=== PATIENT | female | born 1985 | race Hispanic/Latino ===

== ENCOUNTER 2025-01-20 09:50 | Emergency (ER) | payer BC, OTHER ==
[~2025-01-20] VITALS: Ht 167.6 cm; Wt 152.0 kg
[2025-01-20 09:51] VITALS: BP 121/71; PULSE 88; TEMP 98.5
--- NOTE | 2025-01-20 10:11 | ERN ---
ED Note History of Present Illness Stated Complaint: FALL, BILATERAL ANKLE PAIN Chief Complaint: Mechanical Fall Time Seen by MD: 10:04 Dictation: PATIENT IS A 39-YEAR-OLD FEMALE HERE WITH COMPLAINTS OF BILATERAL ANKLE PAIN SWELLING AND LEFT MEDIAL DISTAL FEMUR THIGH SWELLING STATUS POST FALL. SHE STATES SHE WAS IN HER YD WHEN SHE STEPPED INTO A HOLE SHE WAS UNABLE TO WEIGHT BEAR ON HER BILATERAL ANKLES AND ALSO HAS SWELLING TO HER MEDIAL ASPECT OF THE DISTAL LEFT THIGH. NO SHORTENING OR ROTATION NOTED DISTAL NEUROVASCULAR CMS INTACT SHE HAS NOT TAKEN ANYTHING PRIOR TO ARRIVAL FOR PAIN Allergies: Coded Allergies: No Known Allergies (Unverified Allergy, Unknown, 01/20/25) Past Medical History Past Medical History: Hypertension Surgical History: None History: Not Applicable LMP: Dec 23, 2024 RN Note Reviewed/Agreed w/PFSH: Yes Review of System Dictation CONSTITUTIONAL: NEGATIVE EXCEPT FOR HPI HEAD/FACE: NEGATIVE EXCEPT FOR HPI EENT: NEGATIVE EXCEPT FOR HPI RESPIRATORY: NEGATIVE EXCEPT FOR HPI GASTROINTESTINAL/ABDOMINAL: NEGATIVE EXCEPT FOR HPI GENITOURINARY: NEGATIVE EXCEPT FOR HPI MUSCULOSKELETAL: NEGATIVE EXCEPT FOR HPI MEDIAL ASPECT OF DISTAL LEFT THIGH, BILATERAL ANKLE PAIN INTEGUMENTARY: NEGATIVE EXCEPT FOR HPI NEUROLOGICAL/PSYCH: NEGATIVE EXCEPT FOR HPI HEMATOLOGIC/LYMPHATIC: NEGATIVE EXCEPT FOR HPI ALL SYSTEMS NEGATIVE, EXCEPT NOTED ABOVE. 13 POINT REVIEW OF SYSTEMS ASSESSED AND ALL NEGATIVE EXCEPT FOR ABOVE. Initial Vital Sign VS Vital Signs Date Time Temp Pulse Resp B/P (MAP) Pulse Ox O2 Delivery O2 Flow Rate FiO2 01/20/25 09:51 98.4 88 121/71 97 Room Air 0 Physical Exam Dictation VITAL SIGNS REVIEWED GENERAL APPEARANCE: ALERT, ORIENTED X 3, MODERATE ACUTE DISTRESS, WELL DEVELOPED, NOURISHED. OBESE HEAD AND FACE: NON-TRAUMATIC. EYES: PERRL, PINK CONJUNCTIVAS, EYELID NO TRAUMA, ANTERIOR CHAMBER WITH ARCUS SENILIS. EARS: PINNAS INTACT AND NO SIGNS OF TRAUMA OR ERYTHEMA EAR CANALS CLEAR AND NO DISCHARGE TM NO ERYTHEMA NOSE: NO DISCHARGE, NO BLEEDING. OROPHARYNX: MOUTH NORMAL, TONGUE PINK, PHARYNX CLEAR,NO ERYTHEMA, TONSILS NO EXUDATES, NO ABSCESSES NOTED, MUCOUS MEMBRANE MOIST NECK: SUPPLE, NON-TENDER, NO THYROMEGALY, NO MASSES, NO JVD, NO BRUITS BREAST:DEFERRED CHEST:NO TENDERNESS, NO CREPITUS, NO PARADOXICAL MOVEMENT, NO RETRACTIONS LUNGS:CLEAR, WELL-VENTILATED, SYMMETRIC, NO RALES, NO WHEEZING, NO RHONCHI, NO STRIDOR, GOOD BREATH SOUNDS BILATERALLY HEART: REGULAR RATE, REGULAR RHYTHM, NO MURMUR, NO GALLOPS VASCULAR: NO PERIPHERAL EDEMA, ABDOMEN: SOFT, POSITIVE BOWEL SOUNDS, NONDISTENDED, NO GUARDING, NONTENDER, NO REBOUND, NO MASSES NO HEPATOMEGALY, NO SPLENOMEGALY, NO WILLIAM'S SIGN, NO HERNIAS. RECTAL: DEFERRED GENITAL: DEFERRED NEUROLOGICAL: NORMAL SPEECH, MOTOR FUNCTION INTACT, SENSORY FUNCTION INTACT MUSCULOSKELETAL: NECK NONTENDER, FULL RANGE OF MOTION, BACK NONTENDER, FULL RANGE OF MOTION, EXTREMITIES: BILATERAL LATERAL MALLEOLAR TENDERNESS SWELLING. SOFT TISSUE SWELLING NOTED TO MEDIAL ASPECT OF DISTAL LEFT THIGH SKIN: COLOR PINK, DRY, NO TURGOR, NO RASH, NO LACERATIONS, NO ABRASIONS, NO CONTUSIONS. LYMPHATIC: DEFERRED Results (Laboratory/Radiology) Laboratory/Radiology LEFT FEMUR X-RAY NEGATIVE SOFT TISSUE SWELLING ONLY LEFT ANKLE DEMONSTRATES DISTAL FIBULAR FRACTURE RIGHT ANKLE DEMONSTRATES NO FRACTURE Labs Reviewed?: Yes ED Course ED Course Orders Procedure Category Date Status Time Hydrocodone/Apap PHA 01/20/25 Complete 5/325 ([place] 5/325mg) 10:30 Ketorolac 60mg/2ml PHA 01/20/25 Complete (Toradol 60mg/2ml) 10:30 Ankle Comp 3vws Lt RAD 01/20/25 Taken 10:07 Ankle Comp 3vws Rt RAD 01/20/25 Taken 10:07 Femur 2 Vw Left RAD 01/20/25 Taken 10:07 Apply Ice Pack To: CPOE 01/20/25 Transmitted (Er) 10:07 Crutches W/Training CPOE 01/20/25 Transmitted (Er) 11:39 Posterior Ankle Splint CHRISTY.ER 01/20/25 Transmitted 11:39 Apply Moncho Wrap (Er) CPOE 01/20/25 Transmitted 11:39 Current Medications Medications (Trade) Dose Ordered Sig/Sandy Route PRN Reason Start Time Stop Time Status Last Admin Dose Admin Acetaminophen/ Hydrocodone Bitart (NORco 5/325MG) 1 tab ONCE ONCE PO 01/20/25 10:30 01/20/25 10:31 DC 01/20/25 10:32 Ketorolac Tromethamine (toRADol 60MG/ 2ML) 60 mg ONCE ONCE IM 01/20/25 10:30 01/20/25 10:31 DC 01/20/25 10:31 Vital Signs Date Time Temp Pulse Resp B/P (MAP) Pulse Ox O2 Delivery O2 Flow Rate FiO2 01/20/25 09:51 98.4 88 121/71 97 Room Air 0 1140/MONCHO WRAP TO RIGHT ANKLE NEUROVASCULAR CMS INTACT. LEFT POSTERIOR ANKLE SPLINT PLACED BY TECH DISTAL NEUROVASCULAR CMS INTACT POST PLACEMENT Medical Decision Making MDM MEDICAL DISCHARGE MAKING BASED ON PAIN MANAGEMENT AND X-RAYS OF LEFT FEMUR AND BILATERAL ANKLES LEFT FEMUR X-RAY NEGATIVE EXCEPT FOR SOFT TISSUE SWELLING RIGHT ANKLE X-RAY NEGATIVE EXCEPT FOR SOFT TISSUE SWELLING NONDISPLACED LEFT DISTAL FIBULAR FRACTURE SPLINT INTACT NEUROVASCULAR CMS INTACT TO BOTH EXTREMITIES PATIENT INSTRUCTED SHE MAY TOUCH DOWN WEIGHT BEAR ON RIGHT ANKLE. DX & DISP Disposition: Discharge Departure Impression: Primary Impression: Closed fracture of left distal fibula Additional Impressions: Right ankle sprain, Contusion of left thigh, initial encounter, Fall Condition: Stable Scripts Ibuprofen (Ibuprofen 800 mg Tab) 800 Mg Tab 800 MG PO Q8H PRN for fever or pain, #30 TAB 0 Refills Prov: CRYSTAL VALENTINO NP 01/20/25 Additional Instructions: FOLLOW-UP WITH PRIMARY CARE PROVIDER IN 1 TO 2 DAYS. TAKE MEDICATIONS DIRECTED HERE IN THE EMERGENCY ROOM. OKAY TO CONTINUE HOME MEDICATIONS UNLESS OTHERWISE DISCUSSED DURING YOUR VISIT IN THE EMERGENCY ROOM TODAY. RETURN TO YOUR NEAREST EMERGENCY ROOM IF SYMPTOMS WORSEN OR IF THERE IS NO IMPROVEMENT. CALL 911 IF YOU NEED IMMEDIATE ASSISTANCE. TAKE TYLENOL OR MOTRIN [id number] NEEDED AND IF NO CONTRAINDICATIONS ARE PRESENT. INCREASE ORAL HYDRATION. A WOUND CULTURE OR URINE CULTURE WAS ORDERED HERE IN THE EMERGENCY ROOM DEPARTMENT PLEASE FOLLOW-UP WITH PRIMARY CARE PROVIDER AND ADVISE THEM TO GET REPEAT PORTS FROM OUR FACILITY. IF YOU HAD ANY MONCHO WRAP/SPLINTS THAT WERE APPLIED HERE, PLEASE DO NOT REMOVE THEM UNTIL YOU SEE YOUR PRIMARY CARE OR SPECIALTY. COOL COMPRESSES TO PAIN THREE TO 4 TIMES A DAY. SPLINT/CRUTCHES/NO WEIGHT-BEARI NG ON YOUR LEFT LEG UNTIL CLEARED BY ORTHOPEDICS, CALL FOR AN APPOINTMENT TODAY. Referrals: SELF,REFERRAL (PCP) ELLA LOMBARDO DO Time of Disposition: 11:42 I have reviewed the case, and I agree with, Diagnosis and Plan CRYSTAL VALENTINO NP Jan 20, 2025 10:11
[2025-01-20] MEDS: ketOROlac 60 MG VIAL (30MG/ML) IM ONE (10:31)
[2025-01-20] MEDS: HYDROcodone/APAP 5/325 1 TAB TABLET PO ONE (10:32)
[2025-01-20] MEDS ORDERED: IBUP-2077 PO (11:45)
--- NOTE | 2025-01-20 12:08 | HMCIMG ---
Exam Type: FEMUR 2 VW LEFT Clinical Information: LEFT MEDIAL FEMUR PAIN SWELLING STATUS POST FALL Comparison: None Findings: The bone examination is unremarkable. No fractures or dislocations are seen. No radiopaque foreign bodies are noted. Soft tissues are preserved. IMPRESSION: Normal examination.
--- NOTE | 2025-01-20 12:15 | HMCIMG ---
Exam Type: ANKLE COMP 3VWS LT Clinical Information: ANKLE PAIN STATUS POST FALL Comparison: None Findings and impression: Nondisplaced lateral malleolar fracture with overlying soft tissue swelling. No other abnormalities.
--- NOTE | 2025-01-20 12:21 | HMCIMG ---
Exam Type: ANKLE COMP 3VWS RT Clinical Information: ANKLE PAIN STATUS POST FALL Comparison: None Findings and impression: Nondisplaced lateral malleolar fracture. No other abnormalities.
--- NOTE | 2025-01-20 12:51 | NUR ---
POSTERIOR ANKLE SPLINT APPLIED TO LLE, MONCHO WRAP APPLIED TO RT ANKLE, AND CRUTCHES WITH CRUTCH USE INTRUCTIONS PROVIDED. PT TOLERATED WELL AND VOICED UNDERSTANDING.
== END 2025-01-20 13:17 | disposition home or self-care (01) ==
LOC: EDH 09:50
DX: S82.65XA Nondisplaced fracture of lateral malleolus of left fibula, initial encounter for closed fracture (principal); S82.64XA Nondisplaced fracture of lateral malleolus of right fibula, initial encounter for closed fracture; S70.12XA Contusion of left thigh, initial encounter; W18.39XA Other fall on same level, initial encounter; I10 Essential (primary) hypertension; Y93.89 Activity, other specified; Y92.89 Other specified places as the place of occurrence of the external cause; Y99.8 Other external cause status
CPT/HCPCS: 99284; 29515; 73610 ×2; 73552; 96372; J1885